=== PATIENT | female | born 1950 | race Caucasian/White ===

== ENCOUNTER → 2019-08-07 09:21 | Outpatient (BNVA) | payer MEDICARE, SELFPAY | PROVIDERS: Family Provider Pediatrics; PCP Pediatrics; Visit Provider Internal Medicine Cardiovascular Disease | DX: E78.2 Mixed hyperlipidemia; I49.8 Other specified cardiac arrhythmias; I25.10 Atherosclerotic heart disease of native coronary artery without angina pectoris; I10 Essential (primary) hypertension | CPT/HCPCS: 80061 ==

== ENCOUNTER → 2020-05-01 12:35 | Outpatient (BNVA) | payer OTHER, SELFPAY | PROVIDERS: Family Provider Pediatrics; PCP Pediatrics; Visit Provider Internal Medicine Cardiovascular Disease | DX: E78.2 Mixed hyperlipidemia (principal); R40.0 Somnolence | CPT/HCPCS: 80061 ==

== ENCOUNTER 2020-05-13 12:00 | Outpatient (CLI) | payer OTHER, SELFPAY | END 2020-05-13 12:01 | disposition home or self-care (01) | LOC: SLEEP 05-14 12:00 | PROVIDERS: Family Provider Pediatrics; PCP Pediatrics; Visit Provider Internal Medicine Cardiovascular Disease | DX: G47.10 Hypersomnia, unspecified (principal) | CPT/HCPCS: G0399 ==

== ENCOUNTER 2020-10-08 09:35 | Outpatient (CLI) | payer MEDICARE, SELFPAY ==
--- NOTE | 2020-10-08 11:07 | NMCV_ITS ---
NM luh perf SPECT r/s* [id number] Cathryn Eagle Age: 70 Gender: F : 1950 Exam Date: 10/08/2020 11:12 Ordering Phys: Edu Jones MD ([email or web address]) Technologist: INNA Serrano Exam Location: [facility] Indications: SHORTNESS OF BREATH STRESS TEST [facility] IMAGE PROTOCOL Rest/Stress 1 Lexiscan Day Radiopharmaceutical Dose (mCi) Administration Site Administered by Rest: Tc-99m 10.4 IV INNA Avilez Sestamibi Stress:Tc-99m 32.9 IV INNA Avilez Sestamibi Rest: 08-Oct-2020 60 Discovery 630 Stress: 08-Oct-2020 30 Discovery 630 0.4mg Lexiscan. Images obtained in supine and prone position. SPECT RESULTS Technical Quality: Excellent Raw Data Analysis: Normal Image Corrections: No attenuation or motion correction applied Summed Stress Score: 0 Summed Rest Score: 0 Summed Difference Score: 0 PERFUSION FINDINGS Slightly decreased tracer uptake was noted in the mid and apical anterior wall region. No significant reversibility. FUNCTIONAL RESULTS (calculated via Gated SPECT) Stress Image LV EF (%): 79 Stress EDV (mL):89 TID: 1.06 Stress ESV (mL):19 FUNCTIONAL FINDINGS: Segmental wall motion analysis revealing no gross wall motion normalities IMPRESSIONS 1. Myocardial perfusion imaging revealing small area of slightly decreased persistent decreased tracer uptake in the mid and apical anterior wall region, most likely are present attrition artifact. 2. Normal LV ejection fraction of 79%. 3. LV wall motion analysis revealing no gross wall motion normalities. 4. Normal LV volume. No significant coronary ischemia, based on the above findings Dr Edu Jones MD FACC (Electronically Signed) Final Date: 13 October 2020 18:50 S
--- NOTE | 2020-10-08 11:07 | ECG_ITS ---
[facility] Test Date: 2020-10-08 Pat Name: Cathryn Eagle Department: Room: Gender: Female Residential [employer]: : 1950 Requested By: Edu Jones Order Number: [id number] Natalie MD: Edu Jones M.D. Interpretive Statements NAME OF STUDY: LEXISCAN SESTAMIBI STRESS TEST INDICATION: Chest Pain PROCEDURE: At the baseline, the EKG revealed sinus rhythm with normal ST Ts. The baseline blood pressure was 172/73 mm Hg with a heart rate of 78 beats/min. Lexiscan was infused over a period of 20 seconds. A total of 0.4 milligrams of Lexiscan was infused. The stress phase was continued for a total of 5 minutes. Heart rate at the end of the stress phase was 92 with a blood pressure 153/61. The EKG at the peak infusion revealed around .[address] depression in lead II, III and aVF. Nonspecific ST changes in lead V5 and V6. Sestamibi was injected 20 seconds after the Lexiscan infusion. Patient was complaining of shortness of breath with Lexiscan infusion. The symptoms resolved during the recovery phase. Blood pressure at the end of the recovery phase was 158/60 with a heart rate of 89 per minute. CONCLUSION: 1. Borderline abnormal EKG changes with Lexiscan infusion, suggestive of inferior wall ischemia 2. No LexiScan induced chest pain or cardiac arrhythmia 3. Normal blood pressure and heart rate response 4. Sestamibi/sestamibi perfusion scan pending; see separate report. Electronically Signed On 10-14-2020 10:03:25 CDT by Edu Jones M.D. [id number]
[2020-10-08 11:08] VITALS: BMI 28.8
[2020-10-08] MEDS: regadenoson 0.4 Mg/5 ml Syringe IVP (12:06)
[2020-10-08 12:07] VITALS: BP 162/61; PULSE 98
== END 2020-10-08 09:36 | disposition home or self-care (01) ==
PROVIDERS: PCP Pediatrics; Visit Provider Internal Medicine Cardiovascular Disease
DX: R07.9 Chest pain, unspecified (principal)
CPT/HCPCS: 78452; 93017; A9500; J2785

== ENCOUNTER → 2020-11-28 11:45 | Outpatient (BNVA) | payer MEDICARE, SELFPAY | PROVIDERS: PCP Pediatrics; Visit Provider Internal Medicine Cardiovascular Disease | DX: R06.02 Shortness of breath (principal); I25.118 Atherosclerotic heart disease of native coronary artery with other forms of angina pectoris; E78.2 Mixed hyperlipidemia | CPT/HCPCS: 80061 ==

== ENCOUNTER → 2021-05-22 11:37 | Outpatient (BNVA) | payer MEDICARE, SELFPAY | PROVIDERS: PCP Pediatrics; Visit Provider Internal Medicine Cardiovascular Disease | DX: R06.02 Shortness of breath (principal); I25.118 Atherosclerotic heart disease of native coronary artery with other forms of angina pectoris; E78.2 Mixed hyperlipidemia; I10 Essential (primary) hypertension | CPT/HCPCS: 80061; 80076; 99214 ==

== ENCOUNTER → 2021-12-01 15:40 | Outpatient (BNVA) | payer MEDICARE, SELFPAY | PROVIDERS: PCP Pediatrics; Visit Provider Nurse Practitioner Family | DX: E78.2 Mixed hyperlipidemia (principal); I25.118 Atherosclerotic heart disease of native coronary artery with other forms of angina pectoris; I10 Essential (primary) hypertension | CPT/HCPCS: 80061; 99214 ==